=== PATIENT | male | born 1985 | race Caucasian/White ===

== ENCOUNTER 2016-09-12 18:47 | Emergency (ER) | payer OTHER ==
[~2016-09-12] VITALS: Ht 170.2 cm; Wt 83.1 kg
[2016-09-12 18:53] VITALS: TEMP 37.3; Ht 170.2 cm; Wt 83.1 kg
[2016-09-12] MEDS ORDERED: SODIUM CHLORIDE 0.9% 1000ML 1,000 ML IV STA ×2 (19:09→22:18)
[2016-09-12] MEDS ORDERED: CALC500C3 PO (19:16)
[2016-09-12] MEDS ORDERED: [UNRECOGNIZED DRUG - CODE] PO (19:16)
[2016-09-12 19:22] LABS: BASO % 0.1 %; BASO ABS # 0.01 K/uL (0-0.2); COMPLETE YES; HEMATOCRIT 46.3 % (42-52); IG% 0.2 %; LYMPH % 10.3 %; MEAN CELL VOLUME 86.7 fL (80-100); MEAN CORPUSCULAR HEMOGLOBIN 32.2 pg (25-34); MEAN CORPUSCULAR HGB CONC 37.1 g/dl (32-36); MEAN PLATELET VOLUME 10.8 fL (7.4-10.4); MONO % 6.3 %; NEUT % 82.1 %; PLATELET COUNT 198 K/uL (130-400); RED BLOOD COUNT 5.34 M/uL (4.7-6.1); WHITE BLOOD COUNT 10.67 K/uL (4.8-10.8)
[2016-09-12] MEDS ORDERED: OPTIRAY 320 IV PRN (19:30)
[2016-09-12 19:40] LABS: BUN/CREATININE RATIO 8.5 (10-20); CALCIUM 9.7 mg/dl (8.5-10.1); CREATININE 1.1 mg/dl (0.60-1.40); POTASSIUM 3.8 mmol/L (3.5-5.1)
[2016-09-12 19:43] LABS: ALB/GLOB RATIO 1.3 (0.9-2)
[2016-09-12 19:46] VITALS: O2SAT 98
[2016-09-12 20:08] LABS: URINE APPEARANCE CLEAR (CLEAR); URINE BILIRUBIN NEG (NEG); URINE COLOR YELLOW; URINE NITRITE NEG (NEG); URINE SPECIFIC GRAVITY 1.012 (1.000-1.030); UROBILINOGEN NEG (NEG); ZZUR CULT IF INDIC CLEAN CATCH NO
[2016-09-12 20:12] LABS: MANUAL MICROSCOPIC REQUIRED? NO; REVIEW REQ? NO
--- NOTE | 2016-09-12 21:51 | DIAGNOSTIC IMAGING REPORT ---
CT SCAN OF THE ABDOMEN AND PELVIS WITH IV CONTRAST CLINICAL HISTORY: Hematochezia. COMPARISON STUDY: No priors. TECHNIQUE: Following the IV administration of 119 cc of Optiray 320, CT scan of the abdomen and pelvis is performed from the lung bases to the proximal femora. Images are reviewed in the axial, sagittal, and coronal planes. IV contrast was administered without complication. Automated dose control exposure was utilized. CT DOSE: 478.03 mGy.cm FINDINGS: Lung bases: The heart is normal in size and without pericardial effusion. The lung bases are clear. Liver: The contrast-enhanced liver is normal in size, contour, and attenuation. There is no intrahepatic biliary ductal dilatation. The hepatic veins and portal veins are patent. Gallbladder: Unremarkable. Spleen: Normal in size and attenuation. There are scattered calcified splenic granulomas. Pancreas: Unremarkable. Adrenal glands: Unremarkable. Kidneys: The contrast enhanced kidneys are normal in size and without hydronephrosis. The kidneys enhance symmetrically. Abdominal vasculature: The abdominal aorta is normal in course and caliber. Bowel: The small bowel and colon are normal in course and caliber. There is long segment of significant wall thickening and mucosal edema identified involving the descending colon with surrounding inflammatory stranding. The right colon and the sigmoid colon are normal in appearance. The appendix is well-visualized and normal. Peritoneum: There is no intraperitoneal free air or abdominal ascites. Trace fluid in the pelvic is likely on a reactive basis. There is a small fat-containing umbilical hernia. Lymphadenopathy: None. Pelvic viscera: The bladder, prostate, and seminal vesicles are normal as visualized. Skeletal structures: No lytic or blastic lesions are seen. IMPRESSION: 1. Findings are consistent with a nonspecific colitis of the descending colon. This is likely on an infectious or inflammatory basis in this age group. Clinical correlation will be required. 2. Trace free fluid in the pelvis is likely on a reactive basis. Electronically signed by: Adrian Lopez M.D. 09/12/2016 9:49 PM Dictated Date/Time: 09/12/2016 9:45 PM
--- NOTE | 2016-09-12 22:59 | EMERGENCY ROOM VISIT NOTE ---
History First contact with patient: 18:56 Chief Complaint: GI ASSESSMENT Stated Complaint: BLOOD IN STOOL Nursing Triage Summary: pt reports waking up approx 3am with abd pain and diarrhea with blood in stool. reports feeling urge to have BM [id number] and passes "blood and tissue." states he has had abd pain and diarrhea in the past and has had "dots of blood, but nothing like this." SO has a picture of BM and shows bright red blood in toilet. reports treating diarrhea in the past with "activated charcoal." denies use of blood thinners or excessive ibuprofen use. denies cp/sob, states he does feel dizzy at times. pt alert and oriented x4. breathing WNL. ambulatory independently. History of Present Illness The patient is a 30 year old male who presents to the Emergency Room via private vehicle accompanied by and child with complaints of "blood in stool ". The patient states that around 3 AM this past night he woke up, with stomach pain that he describes as periumbilical in nature. He also describes as a bandlike nature over his lower abdomen. The patient states that he has also been passing blood in his stool since 3 AM. He notes that he has a bowel movement every 20-30 minutes. He states that there is a fullness sensation in the testicular region in the rectum. He states that he has had this similar abdominal pain before, but never rectal bleeding like this. He states that he took activated charcoal 1 hour prior to arrival. There is associated minimal dizziness. A few days ago he did consume a burger that was perhaps undercooked. He denies any ibuprofen use, recent antibiotics, blood thinners, chest pain, shortness of breath, hemorrhoids or fissures. Review of Systems A complete 10-point Review of Systems was discussed with the patient, with pertinent positives and negatives listed in the History of Present Illness. All remaining Review of Systems questions can be considered negative unless otherwise specified. Past Medical/Surgical History Abdominal pain Family History No pertinent Social History Smoking Status: Never Smoker Social History: Patient lives and works locally. Current/Historical Medications Scheduled Charcoal Activated (Charcoal), 2 TBS PO UD Scheduled PRN Calcium Carbonate (Tums), 2 TABS PO Q6H PRN for GI Upset Allergies Coded Allergies: No Known Allergies (Unverified , 09/12/16) Physical Exam Vital Signs Date Time Temp Pulse Resp B/P (MAP) Pulse Ox O2 Delivery O2 Flow Rate FiO2 09/12/16 23:47 90 18 146/75 98 09/12/16 22:15 64 19 133/82 97 Room Air 09/12/16 20:20 66 20 136/82 95 Room Air 09/12/16 20:00 61 09/12/16 19:46 98 Room Air 09/12/16 18:53 37.3 77 18 121/83 96 Room Air Physical Exam VITAL SIGNS - Vital signs and nursing notes were reviewed. Afebrile, normotensive at 121/83, nontoxic tachycardic and is saturating well on room air 96%. GENERAL - 30-year-old male appearing his stated age who is in no acute distress. Communicates well with provider and answers questions appropriately. SKIN - Without rashes. HEAD - NC/AT. LUNGS - Chest wall symmetric without accessory muscle use, intercostals retractions, or central cyanosis. Normal vesicular breath sounds CTA B/L. No wheezes, rales, or rhonchi appreciated. CARDIAC - RRR with S1/S2. No murmur, rubs, or gallops appreciated. ABDOMEN - Abdominal contour without pulsations or visible masses. BS normoactive all four quadrants. There is generalized abdominal tenderness to palpation overlying the inferior quadrants. No palpable masses, hepatosplenomegaly, or ascites noted. and RECTAL: Genitourinary exam unremarkable. Rectal exam visually unremarkable. Medical Decision & Procedures ER Provider Diagnostic Interpretation: CT SCAN OF THE ABDOMEN AND PELVIS WITH IV CONTRAST CLINICAL HISTORY: Hematochezia. COMPARISON STUDY: No priors. TECHNIQUE: Following the IV administration of 119 cc of Optiray 320, CT scan of the abdomen and pelvis is performed from the lung bases to the proximal femora. Images are reviewed in the axial, sagittal, and coronal planes. IV contrast was administered without complication. Automated dose control exposure was utilized. CT DOSE: 478.03 mGy.cm FINDINGS: Lung bases: The heart is normal in size and without pericardial effusion. The lung bases are clear. Liver: The contrast-enhanced liver is normal in size, contour, and attenuation. There is no intrahepatic biliary ductal dilatation. The hepatic veins and portal veins are patent. Gallbladder: Unremarkable. Spleen: Normal in size and attenuation. There are scattered calcified splenic granulomas. Pancreas: Unremarkable. Adrenal glands: Unremarkable. Kidneys: The contrast enhanced kidneys are normal in size and without hydronephrosis. The kidneys enhance symmetrically. Abdominal vasculature: The abdominal aorta is normal in course and caliber. Bowel: The small bowel and colon are normal in course and caliber. There is long segment of significant wall thickening and mucosal edema identified involving the descending colon with surrounding inflammatory stranding. The right colon and the sigmoid colon are normal in appearance. The appendix is well-visualized and normal. Peritoneum: There is no intraperitoneal free air or abdominal ascites. Trace fluid in the pelvic is likely on a reactive basis. There is a small fat-containing umbilical hernia. Lymphadenopathy: None. Pelvic viscera: The bladder, prostate, and seminal vesicles are normal as visualized. Skeletal structures: No lytic or blastic lesions are seen. IMPRESSION: 1. Findings are consistent with a nonspecific colitis of the descending colon. This is likely on an infectious or inflammatory basis in this age group. Clinical correlation will be required. 2. Trace free fluid in the pelvis is likely on a reactive basis. Electronically signed by: Adrian Lopez M.D. 09/12/2016 9:49 PM Dictated Date/Time: 09/12/2016 9:45 PM Laboratory Results 09/12/16 19:12 Red Blood Count 5.34, Mean Corpuscular Volume 86.7, Mean Corpuscular Hemoglobin 32.2, Mean Corpuscular Hemoglobin Concent 37.1, Mean Platelet Volume 10.8, Neutrophils (%) (Auto) 82.1, Lymphocytes (%) (Auto) 10.3, Monocytes (%) (Auto) 6.3, Eosinophils (%) (Auto) 1.0, Basophils (%) (Auto) 0.1, Neutrophils # (Auto) 8.76, Lymphocytes # (Auto) 1.10, Monocytes # (Auto) 0.67, Eosinophils # (Auto) 0.11, Basophils # (Auto) 0.01 09/12/16 19:12 Test 09/12/16 19:12 09/12/16 19:37 09/12/16 19:40 White Blood Count 10.67 K/uL (4.8-10.8) Red Blood Count 5.34 M/uL (4.7-6.1) Hemoglobin 17.2 g/dL (14.0-18.0) Hematocrit 46.3 % (42-52) Mean Corpuscular Volume 86.7 fL (80-100) Mean Corpuscular Hemoglobin 32.2 pg (25-34) Mean Corpuscular Hemoglobin Concent 37.1 g/dl (32-36) Platelet Count 198 K/uL (130-400) Mean Platelet Volume 10.8 fL (7.4-10.4) Neutrophils (%) (Auto) 82.1 % Lymphocytes (%) (Auto) 10.3 % Monocytes (%) (Auto) 6.3 % Eosinophils (%) (Auto) 1.0 % Basophils (%) (Auto) 0.1 % Neutrophils # (Auto) 8.76 K/uL (1.4-6.5) Lymphocytes # (Auto) 1.10 K/uL (1.2-3.4) Monocytes # (Auto) 0.67 K/uL (0.11-0.59) Eosinophils # (Auto) 0.11 K/uL (0-0.5) Basophils # (Auto) 0.01 K/uL (0-0.2) RDW Standard Deviation 39.8 fL (36.4-46.3) RDW Coefficient of Variation 12.5 % (11.5-14.5) Immature Granulocyte % (Auto) 0.2 % Immature Granulocyte # (Auto) 0.02 K/uL (0.00-0.02) Prothrombin Time 11.0 SECONDS (9.0-12.0) Prothromb Time International Ratio 1.0 (0.9-1.1) Activated Partial Thromboplast Time 27.1 SECONDS (21.0-31.0) Partial Thromboplastin Ratio 1.0 Anion Gap 9.0 mmol/L (3-11) Est Creatinine Clear Calc Drug Dose 101.3 ml/min Estimated GFR () 103.9 Estimated GFR (Non- 89.6 BUN/Creatinine Ratio 8.5 (10-20) Calcium Level 9.7 mg/dl (8.5-10.1) Total Bilirubin 0.8 mg/dl (0.2-1) Aspartate Amino Transf (AST/SGOT) 14 U/L (15-37) Alanine Aminotransferase (ALT/SGPT) 38 U/L (12-78) Alkaline Phosphatase 81 U/L (45-117) Total Protein 8.2 gm/dl (6.4-8.2) Albumin 4.6 gm/dl (3.4-5.0) Globulin 3.6 gm/dl (2.5-4.0) Albumin/Globulin Ratio 1.3 (0.9-2) Lactic Acid Level 1.7 mmol/L (0.4-2.0) Urine Color YELLOW Urine Appearance CLEAR (CLEAR) Urine pH 5.0 (4.5-7.5) Urine Specific [place] 1.012 (1.000-1.030) Urine Protein NEG (NEG) Urine Glucose (UA) NEG (NEG) Urine Ketones NEG (NEG) Urine Occult Blood NEG (NEG) Urine Nitrite NEG (NEG) Urine Bilirubin NEG (NEG) Urine Urobilinogen NEG (NEG) Urine Leukocyte Esterase NEG (NEG) Date/Time Source Procedure Growth Status 09/12/16 19:40 Stool C.difficile Toxin B Gene (PCR) - Final No C. difficile toxin B gene detected Complete Medications Administered Medications (Trade) Dose Ordered Sig/Urban Route Start Time Stop Time Status Last Admin Dose Admin Sodium Chloride 1,000 ml @ 999 mls/hr Q1H1M STAT IV 09/12/16 19:09 09/12/16 20:09 DC 09/12/16 19:48 999 MLS/HR Sodium Chloride 1,000 ml @ 999 mls/hr Q1H1M STAT IV 09/12/16 22:18 09/12/16 23:18 DC 09/12/16 22:18 999 MLS/HR Medical Decision Patient was seen and evaluated as above. After obtaining a thorough history and physical examination IV access was initiated and the above workup was performed. Patient was offered pain medication and declined. CBC reveals no concern of leukocytosis or anemia. Coags normal. CMP reveals normal electrolytes, creatinine elevated at 1.1, patient's follow-up for this. Lactic acid normal. Urine unremarkable. Patient's vital signs are stable. He did have approximately 8 bowel movements during his stay here, and one was sent for further evaluation. These were all bloody in nature via small amounts. Patient is not hemorrhaging at this time. These do appear to be controlled bowel movements. CT scan the abdomen and pelvis were obtained, with results as above. Patient has a nonspecific colitis, which could be secondary to his recent meat consumption however I did discuss the case with my attending, and subsequently the on-call bridge ironworker helper, Dr. boles. This call to place at 10 :10 PM. We discussed the patient could likely be treated in the outpatient setting, and supportive measures at this time a reasonable. We elected to hold off of antibiotics, over concern that this could be from Escherichia coli and do not want to cause HUS. It is recommended to keep the patient hydrated, and he'll be able to see the patient next week. It was recommended to provide the patient with 1 more liter fluid. This will make 2 L total. Patient was provided results of his studies as well as discussion of today's findings. He does feel comfortable following up in the outpatient setting, but notes he is going to [place] for vacation or at least this is planned tomorrow evening. He agreed to stay in the area and attempt to follow-up with Dr. boles on Wednesday potentially. I did enlist the help of our case maker to help try to establish an appointment with him with Dr. boles for Wednesday. At this time the patient appears stable for outpatient management. He certainly was invited back to the emergency Department if he worsened in any way. He was educated upon worrisome symptoms which to return, had questions prior to discharge, and was discharged home in good condition. In evaluation treatment this patient following differential diagnoses entertained: Mesenteric ischemia, colonic ischemia, C. difficile, Escherichia coli, Crohn's disease, ulcerative colitis, Salmonella, among others. Culture pending at this time. Impression Primary Impression: Hematochezia Departure Information Dispostion Home / Self-Care Condition GOOD Referrals No Doctor, Assigned (PCP) Louie Boles D.O. Patient Instructions My [facility] Additional Instructions You have been treated in the Emergency Department your Abdominal Pain and blood in your stool. Laboratory results and imaging studies have ruled out any emergent causes for your abdominal pain which would warrant admission or surgery. You were symptoms and results of today's testing were discussed extensively with Dr. boles, a bridge ironworker helper. He recommends following up with him at his office by calling first thing Wednesday. Our case maker are going to call for you, however if you do not hear from them by 10 AM on Wednesday please call here at [phone] and ask for a caser up. For pain control, you can use the following [id number] medicines (if >12 yo): - Regular strength (325mg/tab) Tylenol (acetaminophen) 2 tabs every 4-6 hours as needed. Do not exceed 12 tablets in a 24 hour period. Avoid taking more than 4 grams (4000 mg) of Tylenol per day. This includes any other sources of acetaminophen you may take on a regular basis. Please avoid taking ibuprofen, aspirin or similar medications until seen by GI. Drink plenty of water and stay well hydrated. Please begin with a bland diet, by drinking plenty of liquids and then progress to soft foods. As with any trip to the Emergency Department, you should follow-up with your Primary Care Provider from today's visit. Return to the emergency department if your symptoms persist despite treatment plan outlined above or if the following symptoms occur: increased fevers, chills , worsening nausea/vomiting, more blood in your stool or urine. Please return to emergency department with any new/concerning symptoms.
[2016-09-12 23:47] VITALS: BP 146/75; PULSE 90; O2SAT 98
== END 2016-09-12 23:47 | disposition home or self-care (01) ==
LOC: C.EDB 18:49
DX: K92.1 Melena (principal); K52.9 Noninfective gastroenteritis and colitis, unspecified